=== PATIENT | male | born 1995 | race Caucasian/White ===

== ENCOUNTER 2018-10-07 09:54 | Emergency (ER) | payer SELFPAY ==
[~2018-10-07] VITALS: Ht 182.9 cm; Wt 93.0 kg
[2018-10-07 09:59] VITALS: BP 115/70
[2018-10-07] MEDS ORDERED: cefTRIAXone SOD 1,000 MG VL IM ONE (10:30)
[2018-10-07] MEDS ORDERED: ALBUTEROL SULF 2.5 MG/0.5ML(0.5%) NEB SOLN NEB ONE ×2 (10:30→11:15)
[2018-10-07] MEDS ORDERED: IPRATROPIUM BROM 0.5 MG/2.5ML INH SOL NEB ONE ×2 (10:30→11:15)
[2018-10-07] MEDS ORDERED: methylPREDNISolone SOD SUCC 125 MG/2 ML VL IM ONE (10:30)
[2018-10-07] MEDS ORDERED: SODIUM CHLORIDE 0.9% 1,000 ML IV ONE (11:15)
[2018-10-07] MEDS ORDERED: LIDOCAINE 1% HCL (LOCAL ANESTH.) INJ 20ML MDV IJ ONE (11:15)
== END 2018-10-07 13:19 | disposition home or self-care (01) ==
LOC: ER 09:54
DX: J40 Bronchitis, not specified as acute or chronic (principal); R11.10 Vomiting, unspecified; F17.290 Nicotine dependence, other tobacco product, uncomplicated
CPT/HCPCS: 71046; 94640; 94644; 96360; 96372; 99284; J0696; J2930; J7030; J7611; J7644

== ENCOUNTER 2020-01-23 00:59 | Inpatient (IN) | payer BC ==
[~2020-01-23] VITALS: Ht 182.9 cm; Wt 109.2 kg
[2020-01-23] MEDS ORDERED: MORPHINE SULFATE 4 MG/ML SYR/VIAL IV ONE (01:30)
[2020-01-23] MEDS ORDERED: ONDANSETRON HCL 4 MG/2 ML VIAL IV ONE (01:30)
[2020-01-23 01:54] LABS: Basophils # (auto) 0.1 10 ^3/uL (0-0.2); Basophils % (auto) 0.8 % (0.0-2.0); Eosinophils # (auto) 0.4 10 ^3/uL (0-0.8); Eosinophils % (auto) 4.7 % (0.0-7.0); Hematocrit 47.4 % (41.0-53.0); Hemoglobin 16.4 g/dL (13.5-17.5); Lymphocytes # (auto) 3.6 10 ^3/uL (0.4-5.4); Lymphocytes % (auto) 43.9 % (10.0-50.0); Mean Corpuscular Hemoglobin 30.7 pg (28.0-32.0); Mean Corpuscular Hgb Conc. 34.7 g/dL (32.0-36.0); Mean Corpuscular Volume 88.6 fL (80.0-100.0); Monocytes % (auto) 12.6 % (0.0-12.0); Neutrophils # (auto) 3.1 10 ^3/uL (1.6-8.6); Nucleated Red Blood Cells % 0.1 %; Platelet Count (auto) 322 10^3/uL (140-450); Red Blood Cells 5.35 10^6/uL (4.5-5.90); Red Cell Distribution Width 13.1 % (11.8-14.3); White Blood Cell 8.2 10^3/uL (4.4-10.8)
[2020-01-23 02:14] LABS: Albumin 4.2 g/dL (3.4-5.0); Anion Gap 7 (5-15); Blood Urea Nitrogen 13 mg/dL (7-18); Calcium 9.1 mg/dL (8.5-10.1); Carbon Dioxide 26 mmol/L (21-32); Chloride 107 mmol/L (98-107); Glucose 128 mg/dL (74-106); Potassium 3.8 mmol/L (3.5-5.1); Sodium 140 mmol/L (136-145)
[2020-01-23 02:16] LABS: Alanine Aminotransferase 227 U/L (16-61); Aspartate Aminotransferase 59 U/L (15-37); GFR African American 77 mL/min; GFR Non-African American 64 mL/min
[2020-01-23 02:17] LABS: Urine Bacteria FEW /hpf (None Seen); Urine Blood 3+ /uL (Negative); Urine Mucus FEW (None Seen); Urine Specific Gravity 1.034 (1.001-1.035); Urine WBC 4 /hpf (0 - 3)
[2020-01-23 02:21] LABS: Alkaline Phosphatase 206 U/L (45-117); Bilirubin, Total 0.5 mg/dL (0.2-1.0); Total Protein 8.3 g/dL (6.4-8.2)
[2020-01-23 02:34] LABS: Partial Thromboplastin Time 23.3 sec (23.0-31.2)
[2020-01-23] MEDS ORDERED: SODIUM CHLORIDE 0.9% 500 ML IV ONE (03:45)
[2020-01-23] MEDS ORDERED: HYDROcodone-ACET 5/325MG TAB PO PRN (03:45)
[2020-01-23] MEDS ORDERED: KETOROLAC TROMETH 30 MG/ML 1ML VIAL IV ONE (03:45)
[2020-01-23] MEDS ORDERED: ONDANSETRON HCL 4 MG/2 ML VIAL IV PRN (03:45)
[2020-01-23] MEDS ORDERED: ACETAMINOPHEN 325 MG TAB PO PRN (03:45)
[2020-01-23] MEDS ORDERED: MORPHINE SULFATE 4 MG/ML SYR/VIAL IV PRN (03:45)
[2020-01-23] MEDS ORDERED: TAMSULOSIN HYDROCHLORIDE 0.4 MG CAP PO ONE (03:45)
[2020-01-23] MEDS ORDERED: TEMAZEPAM 15 MG CAP PO PRN (03:45)
--- NOTE | 2020-01-23 08:20 | NUR ---
MS admit from ER BELINDA SMITH admitted to tele/MS after SBAR received. Patient oriented to SILVIA PAIGE, RN primary RN, unit, room, bed, and unit policies regarding patient care and visiting hours. Patient encouraged to call if they need something. All questions and concerns addressed, patient verbalized understanding.
[2020-01-23 08:50] VITALS: BP 117/66
[2020-01-23] MEDS: FAMOTIDINE 20 MG TAB PO SCH ×2 (10:16→21:39)
[2020-01-23] MEDS ORDERED: cefTRIAXone 1GM/50ML D5W 50 ML IV ONE (12:45)
[2020-01-23 13:00] VITALS: BP 120/56
[2020-01-23] MEDS: SODIUM CHLORIDE 0.9% 1,000 ML IV SCH (13:30)
[2020-01-23] MEDS ORDERED: MANNITOL FTV 25% 12.5 GM/50 ML 50 ML IV ONE (14:00)
[2020-01-23] MEDS ORDERED: SODIUM CHLORIDE 0.9% 3,150 ML IV ONE (14:00)
--- NOTE | 2020-01-23 14:20 | NUR ---
Jones catheter insertion Patient assessed and determined to be in need of jones catheter. Order obtained from MD. Patient educated on catheter and reason for insertion. All questions answered. Patient tolerated well.
[2020-01-23] MEDS ORDERED: SODIUM CHLORIDE 0.9% 1,000 ML IV ONE (16:30)
[2020-01-23 17:00] VITALS: BP 109/57
--- NOTE | 2020-01-23 17:30 | NUR ---
Jones catheter dc'd Order to discontinue jones catheter. Jones dc'd with clean technique following deflation of balloon. Patient tolerated well with no complaints of pain. Continue care.
--- NOTE | 2020-01-23 19:20 | NUR ---
Closing Shift Note Patient resting in bed. No distress noted. Report given. Will endorse care to the security shift manager RN.
[2020-01-23 22:56] VITALS: BP 128/62
[2020-01-24] MEDS: SODIUM CHLORIDE 0.9% 1,000 ML IV SCH ×2 (03:35→15:25)
[2020-01-24 05:16] VITALS: BP 120/65
[2020-01-24 06:35] LABS: Basophils # (auto) 0 10 ^3/uL (0-0.2); Basophils % (auto) 0.4 % (0.0-2.0); Eosinophils # (auto) 0.3 10 ^3/uL (0-0.8); Eosinophils % (auto) 5.6 % (0.0-7.0); Hematocrit 41.2 % (41.0-53.0); Lymphocytes # (auto) 2.3 10 ^3/uL (0.4-5.4); Lymphocytes % (auto) 39.3 % (10.0-50.0); Mean Corpuscular Hemoglobin 30.8 pg (28.0-32.0); Mean Corpuscular Hgb Conc. 34.1 g/dL (32.0-36.0); Mean Corpuscular Volume 90.2 fL (80.0-100.0); Monocytes # (auto) 0.6 10 ^3/uL (0-1.3); Neutrophils # (auto) 2.6 10 ^3/uL (1.6-8.6); Neutrophils % (auto) 43.7 % (37.0-80.0); Nucleated Red Blood Cells % 0.1 %; Platelet Count (auto) 221 10^3/uL (140-450); Red Blood Cells 4.56 10^6/uL (4.5-5.90); Red Cell Distribution Width 13.3 % (11.8-14.3); White Blood Cell 5.9 10^3/uL (4.4-10.8)
[2020-01-24 06:50] LABS: Calcium 7.8 mg/dL (8.5-10.1)
[2020-01-24 06:52] LABS: BUN/Creatinine Ratio 7.9
--- NOTE | 2020-01-24 07:35 | NUR ---
Opening shift note Assumed care of patient form NOC RN. Patient is AOX4 no s/s of distress or SOB noted. Bed is in lowest locked position, side rails up x2, and call light is within reach. Updated patient on plan of care and patient verbalized understanding. Will continue to monitor q1hr and PRN.
[2020-01-24 09:00] VITALS: BP 130/94
[2020-01-24] MEDS ORDERED: cefTRIAXone 1GM/50ML D5W 50 ML IV SCH (09:00)
[2020-01-24 09:28] LABS: Albumin 3.1 g/dL (3.4-5.0); Bilirubin, Direct 0.1 mg/dL (0-0.2)
[2020-01-24 09:31] LABS: Bilirubin, Total 0.2 mg/dL (0.2-1.0); Total Protein 6.1 g/dL (6.4-8.2)
[2020-01-24] MEDS: FAMOTIDINE 20 MG TAB PO SCH (11:03)
--- NOTE | 2020-01-24 11:20 | NUR ---
IV insertion IV access obtained, via clean sterile technique by inserting 22 gauge catheter at left hand after 1 attempt. IV secured properly. No trauma to site. Patient tolerated well.
[2020-01-24 13:00] VITALS: BP 140/86
[2020-01-24] MEDS ORDERED: CIPR500T4 PO (13:51)
[2020-01-24] MEDS ORDERED: TAM04C PO (13:53)
[2020-01-24 17:27] VITALS: BP 150/97
[2020-01-24 17:49] VITALS: BP 140/86
--- NOTE | 2020-01-24 18:30 | NUR ---
Discharge Note Discharge instructions given as ordered. Encourage to follow up with PMD as instructed. All questions and concerns addressed. Patient verbalized understanding. IV removed with catheter intact, pressure dressing applied. Patient stated "I can walk my self down stairs, my is here". Patient ambulated down with all personal belongings. No distress noted at time of departure.
== END 2020-01-24 18:30 | disposition home or self-care (01) | DRG 690 ==
LOC: ER 00:59 → OVERFLOW 01:00 → WEST WING 09:13
PROVIDERS: ADMIT Nurse Practitioner; ATTEND Internal Medicine Nephrology
DX: N13.6 Pyonephrosis (principal); F17.200 Nicotine dependence, unspecified, uncomplicated; N17.9 Acute kidney failure, unspecified; E66.9 Obesity, unspecified; K76.0 Fatty (change of) liver, not elsewhere classified; Z79.899 Other long term (current) drug therapy; Z82.0 Family history of epilepsy and other diseases of the nervous system; Z82.49 Family history of ischemic heart disease and other diseases of the circulatory system; Z68.32 Body mass index [BMI] 32.0-32.9, adult
CPT/HCPCS: 36415; 71045; 74176; 76705; 80048; 80053; 80076; 81001; 83880; 84484; 85025; 85610; 85730; 87086; 93005; G0378; J0696; J1885; J2405

== ENCOUNTER 2021-10-08 02:43 | Emergency (ER) | payer BC, OTHER ==
[~2021-10-08] VITALS: Ht 182.9 cm; Wt 90.7 kg
[~2021-10-08 02:43] MED LIST: CIPR500T4 PO
[2021-10-08 02:44] VITALS: BP 139/76
[2021-10-08] MEDS ORDERED: PERCOT PO (05:42)
== END 2021-10-08 05:58 | disposition home or self-care (01) ==
LOC: ER 02:43
DX: S16.1XXA Strain of muscle, fascia and tendon at neck level, initial encounter (principal); R07.89 Other chest pain; M54.2 Cervicalgia; M54.9 Dorsalgia, unspecified; V28.0XXA Motorcycle driver injured in noncollision transport accident in nontraffic accident, initial encounter; Y93.89 Activity, other specified; Y92.89 Other specified places as the place of occurrence of the external cause; Y99.8 Other external cause status
CPT/HCPCS: 70450; 71045; 72125; 74176